=== PATIENT | female | born 1945 | race Caucasian/White ===

== ENCOUNTER 2022-05-02 13:23 | Day surgery (SDC) | payer MEDICARE, OTHER ==
[2022-05-02] VITALS (8 sets, daily range): BP systolic 123–148; BP diastolic 46–76
[~2022-05-02] VITALS: Ht 152.4 cm; Wt 68.5 kg
[2022-05-02] MEDS ORDERED: insulin Lispro (HumaLOG) vial - multi-dose SQ SCH (13:45)
[2022-05-02] MEDS ORDERED: DEXTROSE 15 GM of carb/4 tabs (each vial/BOTTLE has 4 tablets) PO PRN ×2 (13:45)
[2022-05-02] MEDS ORDERED: dextrose 50%-water 50ml dispensing syringe IV PRN ×2 (13:50)
[2022-05-02] MEDS ORDERED: glucagon, human recombinant 1mg kit SUBCUT PRN (13:50)
[2022-05-02] MEDS ORDERED: LORazepam 0.5 MG tablet PO PRN (13:50)
[2022-05-02] MEDS ORDERED: normal saline 1,000 ML IV SCH (13:50)
[2022-05-02 14:40] LABS: BASOPHILS # (AUTO) 0.1 X10'3 (0-0.2); BASOPHILS % (AUTO) 1.3 % (0-1); EOSINOPHILS # (AUTO) 0.5 X10'3 (0-0.9); EOSINOPHILS % (AUTO) 6.8 % (0-6); HEMATOCRIT 41.4 % (35.0-45.0); HEMOGLOBIN 13.4 g/dl (12.0-16.0); LYMPHOCYTES # (AUTO) 0.9 X10'3 (1.1-4.8); LYMPHOCYTES % (AUTO) 12.3 % (21-51); MEAN CORPUSCULAR HGB CONC 32.5 g/dL (33.0-36.5); MEAN CORPUSCULAR VOLUME 92.2 FL (78-98); MEAN PLATELET VOLUME 9.1 FL (7.4-10.4); MONOCYTES # (AUTO) 0.6 X10'3 (0-0.9); MONOCYTES % (AUTO) 8.4 % (2-12); NEUTROPHILS # (AUTO) 5.5 X10'3 (1.8-7.7); NEUTROPHILS % (AUTO) 71.2 % (42-75); PLATELET COUNT 171 X10'3 (140-440); RED BLOOD COUNT 4.49 X10'6 (4.20-5.60); RED CELL DISTRIBUTION WIDTH 17.8 % (11.5-14.5); WHITE BLOOD COUNT 7.7 X10'3 (4.5-11.0)
[2022-05-02 14:50] LABS: APTT 32 SECONDS (22-32)
[2022-05-02 14:55] LABS: ALBUMIN 4.1 G/DL (3.4-5.0); BLOOD UREA NITROGEN 50 MG/DL (7-18); BUN/CREATININE RATIO 26.3 (6.6-38.0); GLUCOSE 121 MG/DL (70-104); eGFR 26 ML/MIN
[2022-05-02] MEDS ORDERED: INSU100I31 SQ (15:06)
[2022-05-02] MEDS ORDERED: WARF-55 PO (15:06)
[2022-05-02] MEDS ORDERED: LOSA25TA41 PO (15:06)
[2022-05-02] MEDS ORDERED: FURO40TA4 PO (15:06)
[2022-05-02] MEDS ORDERED: ATOR40TA72 PO (15:06)
[2022-05-02] MEDS ORDERED: SPIR25TA5 PO (15:06)
[2022-05-02] MEDS ORDERED: AMIO200T61 PO (15:06)
[2022-05-02] MEDS ORDERED: CARV6.253 PO (15:06)
[2022-05-02 15:07] LABS: ANION GAP 7 (8-16); CHLORIDE 101 MMOL/L (99-107); POTASSIUM 4.3 MMOL/L (3.5-5.1); SODIUM 136 MMOL/L (135-145)
[2022-05-02] MEDS ORDERED: EMPA10TA PO (15:07)
[2022-05-02] MEDS ORDERED: sodium bicarbonate (8.4%) inj. 150 ML in dextrose 5%-water 1,000 ML IV ONE (15:55)
[2022-05-02] MEDS ORDERED: sodium bicarbonate (8.4%) inj. 150 ML in dextrose 5%-water 850 ML IV ONE (15:55)
[2022-05-02] MEDS ORDERED: heparin 1,000unit/ml 10ml vial 10 ML ONE (17:30)
[2022-05-02] MEDS ORDERED: iohexol 300mg/ml 100ml inj. ONE (17:43)
[2022-05-02] MEDS ORDERED: fentaNYL/PF 50MCG/1 ML 2ML syringe ONE (17:51)
[2022-05-02] MEDS ORDERED: midazolam 1 mg/ML 2ml injection ONE ×2 (17:51→18:52)
[2022-05-02] MEDS ORDERED: ondansetron/PF 4mg/2ml inj ONE (20:01)
[2022-05-02] MEDS ORDERED: insulin glargine (Lantus) pen - multi-dose SQ SCH (21:00)
[2022-05-03 08:04] LABS: ISTAT Hct MIX 38 %PCV (35-45); ISTAT O2 SATURATION MIX VENOUS 64 % (60-80); ISTAT SOURCE BLNK
== END 2022-05-02 21:00 | disposition home or self-care (01) ==
LOC: SSTAY O 13:23
PROVIDERS: ATTEND Student in an Organized Health Care Education/Training Program
DX: I13.0 Hypertensive heart and chronic kidney disease with heart failure and stage 1 through stage 4 chronic kidney disease, or unspecified chronic kidney disease (principal); I50.22 Chronic systolic (congestive) heart failure; N18.9 Chronic kidney disease, unspecified; I48.91 Unspecified atrial fibrillation; E78.5 Hyperlipidemia, unspecified; I25.5 Ischemic cardiomyopathy; I25.10 Atherosclerotic heart disease of native coronary artery without angina pectoris; Z88.5 Allergy status to narcotic agent; Z79.01 Long term (current) use of anticoagulants; Z79.899 Other long term (current) drug therapy; Z98.890 Other specified postprocedural states; Z88.6 Allergy status to analgesic agent
CPT/HCPCS: 33289; 36415; 80048; 82803; 82948; 85014; 85025; 85610; 85730; 93005; C1751; C1760; C1769; C1894; C2624; J1644; J1815; J2250; J2405; J3010; J3490; J7030; J7070; Q9967; 99152; 99153; A6258; A6449